=== PATIENT | female | born 1945 | race Caucasian/White ===

== ENCOUNTER 2020-04-26 08:55 | Emergency (ER) | payer OTHER, SELFPAY ==
[2020-04-26] VITALS (15 sets, daily range): BP systolic 64–134; BP diastolic 44–77; PULSE 89–100; RESP 16–32; TEMP 36; O2SAT 96–100
--- NOTE | 2020-04-26 09:01 | ED.GENADULT ---
HPI - General Adult General Chief complaint: Altered Mental Status Stated complaint: Trach Fell Out Time Seen by Provider: 04/26/20 08:58 Source: EMS Mode of arrival: EMS Limitations: no limitations History of Present Illness HPI narrative: 74-year-old female with extensive medical history is sent by her hospice doctor as her tracheostomy tube was accidentally dislodged this morning. It has been in place for many months and patient is in no respiratory distress. The home nursing facility does not feel comfortable replacing the trach. She is otherwise well and at her baseline. Patient had a fall with cervical fracture in September of 2019 and has had a series of significant setbacks in the aftermath including strokes, multiple visits for sepsis. at bedside said she is a bit confused from her baseline. She has a history of this behavior with UTIs and likely pulled the trach as a consequence of her confusion. Onset (ago): minute(s) Treatments prior to arrival: none Related Data Previous Rx's Medication Instructions Recorded sulfamethoxazole-trimethoprim 1 tab PO BID 7 Days #14 tab 04/26/20 [Bactrim DS] Allergies Allergy/AdvReac Type Severity Reaction Status Date / Time No Known Drug Allergies Allergy Verified 04/26/20 10:41 Review of Systems Review of Systems ROS Unobtainable: Unobtainable due to medical condition Exam Narrative Exam Narrative: GEN: 74-year-old female, clearly chronically ill, awake, eyes open in no obvious distress EYES: Pupils are equal, round, and reactive to light and accommodation. Extraoccular muscles are intact bilaterally. There is no subconjunctival hemorrhage or exudate. ENT: Tracheostomy displaced, no significant secretions, bleeding, swelling or erythema CHEST: Lungs are clear to auscultation bilaterally and free of wheezes, rales, or rhonchi. Heart rate is regular rhythm, there are no murmurs, clicks, rubs, or gallops. There is no chest wall tenderness. ABD: Abdomen is soft and nontender. There is no guarding or rebound. Bowel sounds are normal in all 4 quadrants. There is no mass or organomegaly. EXT: Full painless ROM of all extremities with no loss of sensation or strength. SKIN: Warm, pink, and dry. No erythema or rash Initial Vital Signs Initial Vital Signs: Vital Signs Temperature 96.8 F L 04/26/20 09:11 Pulse Rate 100 H 04/26/20 09:11 Respiratory Rate 18 04/26/20 09:11 Blood Pressure 131/63 04/26/20 09:11 Pulse Oximetry 100 04/26/20 09:11 Course Course Course Narrative: respiratory contacted and trach kit brought from stores. Unable to pass trach. I also have tried unsuccessfully. Call to anesthesia two anesthesiologists present and will sedate and attempt passage of trach trach easily placed, will treat UTI, her hospice physician is on board with plan and will follow Orders Ordered: ED Orders 04/26/20 09:45 Basic Metabolic Panel Stat Complete Blood Count AUTO DIFF Stat 04/26/20 10:15 Urinalysis and Microscopic Stat Urine Culture Stat Discontinued Medications Sodium Chloride (Normal Saline 0.9%) 1,000 mls @ 1,000 mls/hr IV BOLUS ONE Stop: 04/26/20 10:26 Last Infusion: 04/26/20 10:43 Dose: 0 mls/hr Documented by: Admin: 04/26/20 09:42 Dose: 1,000 mls/hr Documented by: JAYE Vital Signs Vital signs: Vital Signs - 8 hr 04/26/20 09:11 04/26/20 09:53 04/26/20 09:55 Temperature 96.8 F L Pulse Rate 100 H 100 H 98 H Respiratory Rate 18 22 17 Blood Pressure 131/63 Blood Pressure [Right Arm] 131/77 131/77 Pulse Oximetry 100 100 04/26/20 10:00 04/26/20 10:04 04/26/20 10:06 Temperature Pulse Rate 98 H 99 H 95 H Respiratory Rate 20 32 H 30 H Blood Pressure Blood Pressure [Right Arm] 73/45 L 64/44 L 99/52 L Pulse Oximetry 04/26/20 11:27 Temperature Pulse Rate 95 H Respiratory Rate 28 H Blood Pressure Blood Pressure [Right Arm] Pulse Oximetry Medical Decision Making Lab Data Result diagrams: 04/26/20 09:45 04/26/20 09:45 Labs: Lab Results 04/26/20 04/26/20 04/26/20 Range/Units 09:45 09:45 10:15 WBC 5.2 (4.5-11.0) X10^3/uL RBC 5.01 (4.0-5.2) X10^6/uL Hgb 14.6 (12.0-16.0) g/dL Hct 45.2 (36-46) % MCV 90.0 (80-100) fL MCH 29.2 (26-34) PG MCHC 32.4 (30-36) % RDW 17.4 H (11.6-14.8) % Plt Count 218 (150-400) X10^3/uL Neut % (Auto) 72.1 (50-75) % Lymph % (Auto) 17.1 L (25-40) % [place] % (Auto) 7.7 (3-14) % Eos % (Auto) 2.0 (2-4) % Baso % (Auto) 1.1 (0-2) % Neut # (Auto) 3700 (5759-4019) /uL Lymph # (Auto) 900 L (2335-9575) /uL [place] # (Auto) 400 (0-900) /uL Eos # (Auto) 100 (0-450) /uL Baso # (Auto) 100 (0-100) /uL Sodium 139 (137-145) mmol/L Potassium 3.6 (3.4-5.1) mmol/L Chloride 110 H (98-107) mmol/L Carbon Dioxide 17 L (22-32) mmol/L BUN 7 (7-17) mg/dL Creatinine 0.86 (0.52-1.04) mg/dL Estimated GFR > 60.0 (>60) mL/min BUN/Creatinine Ratio 8.1 (6-22) Glucose 64 L (80-110) mg/dL Calcium 9.6 (8.4-10.2) mg/dL Urine Color Yellow Urine Appearance Clear Urine pH 5.5 (4.5-8.0) Ur Specific [place] 1.025 (1.000-1.035) Urine Protein Trace H (Negative) Urine Glucose (UA) Negative (Negative) g/dL Urine Ketones 1+ H (NEGATIVE) Urine Occult Blood 2+ H (Negative) Urine Nitrate Positive H (Negative) Urine Bilirubin Negative (NEGATIVE) Urine Urobilinogen 0.2 (0.2) E.U./dL Ur Leukocyte Esterase 3+ H (NEGATIVE) Urine RBC 30-100/hpf H (0-5/HPF) Urine WBC >100/hpf H (0-5/HPF) Ur Squamous Epith Cells 1-5 /hpf (0-5/HPF) Urine Bacteria Many (>30) H (None) Ur Culture Indicated? Specimen cultured Point of Care Testing Test Results Not applicable Glucose POC 72 Point of care testing: Point of Care Testing Test Results Not applicable Glucose POC 72 Discharge Plan Departure Patient Disposition: Home Clinical Impression: Tracheostomy mechanical complication, Acute UTI Instructions: How to Take Care of a Tracheostomy, DI for Urinary Tract Infection (UTI) Activity Restrictions/Additional Instructions: *You have been diagnosed with [trach replacement] *What to do: *Take medications as directed *Follow up with your primary care provider in 2-3 days, call for an appointment. Let them know you were seen in the Emergency Department and that we ask that you be seen in follow up *Return to ER if you should have any new, worsening or concerning symptoms Prescriptions: New sulfamethoxazole-trimethoprim [Bactrim DS] 800-160 mg tablet 1 tab PO BID 7 Days Qty: 14 RF: 0
[2020-04-26] MEDS: SODIUM CHLORIDE 0.9% 1,000 ML 1000 ML IV (09:42)
[2020-04-26 09:57] LABS: Add Manual Diff / Slide Review NO; Basophils Absolute Auto 100 /uL (0-100); Basophils Percent Auto 1.1 % (0-2); Eosinophils Absolute Auto 100 /uL (0-450); Hematocrit 45.2 % (36-46); Hemoglobin 14.6 g/dL (12.0-16.0); Lymphocytes Absolute Auto 900 /uL (1100-4500); Lymphocytes Percent Auto 17.1 % (25-40); Mean Corpuscular HGB Conc 32.4 % (30-36); Mean Corpuscular Hemoglobin 29.2 PG (26-34); Monocytes Absolute Auto 400 /uL (0-900); Monocytes Percent Auto 7.7 % (3-14); Neutrophils Absolute Auto 3700 /uL (1500-7000); Neutrophils Percent Auto 72.1 % (50-75); Platelet Count 218 X10^3/uL (150-400); Red Blood Cell Count 5.01 X10^6/uL (4.0-5.2); Red Cell Distribution Width 17.4 % (11.6-14.8); White Blood Cell Count 5.2 X10^3/uL (4.5-11.0)
--- NOTE | 2020-04-26 10:13 | PM.PROC.1 ---
Procedures Date/Time Date of procedure: 04/26/20 Time of procedure: 10:00 Intubation Time out performed: Yes Sedative: other (propofol 80mg with lidocaine 40mg) Additional comments: This was a replacement of a Shiley tracheostomy tube that was unable to be re-inserted without sedation. Patient was confirmed to have patent douglas upper airways by occluding trach hole with finger while breathing deeply. No respiratory distress. Pre-oxygenated through mouth and trach openning. 40mg propofol with lido was given IV, 6.0 soft, lubricated nasal cannula inserted into trach, maintained spontaneous respirations. Nasal cannula removed and secretions suctioned. Original shiley with obturator was placed, requiring light manipulation to pass through a tracheal ring narrowing. Phenylephrine 100mcg given for BP of 80/40, recovered to 99/55. O2 saturation maintained throughout.
[2020-04-26 10:21] LABS: BUN Creatinine Ratio 8.1 (6-22); Blood Urea Nitrogen 7 mg/dL (7-17); Calcium 9.6 mg/dL (8.4-10.2); Carbon Dioxide 17 mmol/L (22-32); Chloride 110 mmol/L (98-107); Estimated Glomerular Filt Rate > 60.0 mL/min (>60); Glucose 64 mg/dL (80-110); HEMOLYSIS < 15 (0-50); Potassium 3.6 mmol/L (3.4-5.1); Sodium 139 mmol/L (137-145)
[2020-04-26 10:53] LABS: Appearance Urine UA CLEAR; Bilirubin Urine UA NEGATIVE (NEGATIVE); Color Urine UA YELLOW; Glucose Urine UA NEGATIVE (Negative); Ketones Urine UA 1+ (NEGATIVE); Leukocyte Esterase Urine UA 3+ (NEGATIVE); Nitrite Urine UA POSITIVE (Negative); Occult Blood Urine UA 2+ (Negative); Protein Urine UA TRACE (Negative); Specific Gravity Urine UA 1.025 (1.000-1.035); Urobilinogen Urine UA 0.2 E.U./dL (0.2)
[2020-04-26 11:40] LABS: RBC Urine 30-100/HPF (0-5/HPF); WBC Urine >100/HPF (0-5/HPF); pH Urine UA 5.5 (4.5-8.0)
[2020-04-26 11:41] LABS: Bacteria Urine Many (>30); Culture Indicated Urine Specimen Cultured; Squamous Epithelial Cell Urine 1-5 /HPF (0-5/HPF)
--- NOTE | 2020-04-26 12:28 | PC.NURSE ---
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 Today was increased restlessness and pulled out her trach. Brought to ED for replacement. Unable to replace at bedside w/ RT and ED doc, procedural sedation w/ anesthesia replaced trach w/o difficulty. Pt w/ UTI as source of confusion.
== END 2020-04-26 13:18 | disposition home or self-care (01) ==
PROVIDERS: Emergency Provider Emergency Medicine; PCP Nurse Practitioner Family
DX: J95.03 Malfunction of tracheostomy stoma (principal); N39.0 Urinary tract infection, site not specified
CPT/HCPCS: 31500; 36415; 80048; 81001; 82962; 85025; 87077; 87086; 87186; 94640; 94770; 94799; 96360; 99285; 99291; 99292

== ENCOUNTER → 2020-09-28 13:06 | Outpatient (CLI) | payer BC, MEDICARE, SELFPAY ==
--- NOTE | 2020-09-28 | DI.RAD.S_ITS ---
PROCEDURE: FL BARIUM SWALLOW W SPEECH INDICATIONS: Dysphagia, oropharyngeal phase COMPARISON: None. TECHNIQUE: Examination was conducted in conjunction with speech pathology per standard protocol. In the lateral projection, filming was performed of the patient swallowing. AP projection filming may also be performed with patient swallowing. COMPARISON: FINDINGS: Function: The oral preparatory phase is abnormal with premature spillage of all passage of proffered substances. The subsequent oral propulsive phase, pharyngeal phase, and esophageal phase of swallowing also appear normal with all proffered substances. No laryngotracheal penetration occurred with all proper substances. Laryngotracheal aspiration occurred with thick viscosity substances. Pooling in the vallecula noted which is easily cleared with repeat swallows. Morphology: No cricopharyngeal bar is identified. No cervical esophageal webs. No Zenker's diverticulum. No strictures. IMPRESSION: Laryngotracheal aspiration. Dictated by: Leanne Hale MD, PhD on 09/28/2020 at 15:31 Approved by: Leanne Hale MD, PhD on 09/28/2020 at 15:34
--- NOTE | 2020-10-05 11:23 | ST.SWALLOW ---
Visit Care Team Role Provider Type RONALD Harris Primary Care Provider Non-Staff Specialty: Family Practice Address: [address] [place] [address], [address], [place], [address] Fax: Email: Judd Rust MD Attending Provider Non-Staff Referring Provider Specialty: Medical Address: [address] [place] [address], [id number] Email: Modified Barium Swallow Study [facility] Modified Barium Swallow Study Start: 10/04/20 08:46 Freq: Status: Active Protocol: Document 09/28/20 08:46 ESVIN (Rec: 10/04/20 08:47 ESVIN [id number]) Modified Barium Swallow Study Total Time Visit Start Time 13:30 Visit Stop Time 14:30 Total Visit Minutes [address] Judd Rust Reason for Referral Dysphagia Setting Setting Outpatient Care Patient Information Identification Type Name,ID Card Patient History The pt is a 74-yr-old female from [facility]. Case history came primarily from the pt's facility [facility] via a phone call. The pt has a history of stroke resulting in significant dysarthria impacting speech intelligibility, and a dense C2 fracture from a fall, which led to tracheotomy and NPO status. The pt was admitted to [facility] on hospice after hospitalization; however, she improved and is no longer receiving hospice care. At one point the pt removed her trach, which was replaced in ED but then later permanently removed by medical staff. The pt has remained NPO with exception of Bright Free Water Protocol and therapeutic trials of applesauce and soft solids. The pt's primarily [facility] reported the pt is very impulsive and requires significant cuing to take deep breaths in order to remain calm, to refrain from talking with oral intake, and to focus on utensil/bolus presentation . MBS was ordered to assess swallow safety/function, determine if pt is safe for diet advancement, and to provide guidance related to SNF discharge. Subjective Observations The pt arrived on time, accompanied by her daughter who was consulted, with the pt , following the procedure. The pt was not a good historian, primarily complaining about the taste of the food at the SNF. Speech intelligibility was ~50%. The pt followed simple directions and did not exhibit impulsivity during the swallow study. Patient Positioning Position View Lateral Imaging Lateral View Textures Administered Trials Presented Thin Liquid via Spoon,[place] Liquid via Spoon,Honey Liquid via Spoon Oral Phase Source: MBSIMP (TM) (C) Bolus Specific Scoring Grid Lip Closure No Impairment (WNL) Tongue Control During Bolus Hold Moderate Impairment Bolus Prep/Mastication Moderate Impairment Bolus Transport/Lingual Motion Moderate Impairment A/P Lingual Propulsion Delay Yes: Early spilling to pharynx Oral Residue Mild Impairment Residue Clearing Minimal Impairment Nasal Regurgitation No Additional Oral Phase Observations Oral Peripheral Exam: Tremorous jaw and tongue at rest and with movement. Lingual weakness and reduced coordination. Pt exhibited difficulty performing volitional swallow, with lingual and laryngeal pumping present. Pt has natural dentition in adequate condition. Soft palate elevates upon phonation. Oral Phase: Immediate posterior spillage into pharynx was observed with all consistencies due to lingual weakness and reduced coordination. A/P propulsion is delayed and accompanied by lingual rocking, resulting in bolus escape to pharynx prior to onset of swallow. Chin tuck did not improve oral containment. The pt was able to hold bolus anteriorly in the oral cavity during a counted swallow strategy (1-2 -3-swallow) but it immediately escaped to the pharynx with attempted initiation of a/p propulsion. Mild oral residue escaped to vallecula post swallow, contributing to pharyngeal residue. Pharyngeal Phase Source: MBSIMP (TM) (C) Bolus Specific Scoring Grid Delayed Initiation of Pharyngeal Swallow Yes Number of Seconds Delayed (seconds) up to 10 sec Residue Along the Tongue Base Yes Clearance of Residue Along Tongue Base Moderate Impairment Laryngeal Elevation Moderate Impairment Anterior Hyoid Movement Moderate Impairment Epiglottic Range of Motion Minimal Impairment Vallecular Residue Yes Laryngeal Vestibular Closure Severe Impairment Pharyngeal Stripping Wave Moderate Impairment Posterior Pharyngeal Wall Residue No Upper Esophageal Sphincter Opening WFL Residue in the Pyriform Sinuses No Esophageal Clearance Upright Position No Impairment (WNL) Pharyngoesophageal Backflow Observed No Additional Pharyngeal Phase Observations All trials were 1/8 - 1/2 tsp in size. Significantly delayed swallow trigger was observed with all trials, allowing for escape of bolus from oral cavity to vallecula and frequently along aryepiglottic folds to pyriform sinuses. Occasional spillage into the laryngeal vestibule was noted prior to onset of swallow. Penetration with ejection (PAS 2) was observed with 2 trials of NTL and 2 trials of HTL. Penetration without ejection ( PAS 3) was observed during swallow with thin liquid, then resulting in aspiration without cough response (PAS 8) during subsequent dry swallow . Ronn aspiration without cough response (PAS 8) was noted during chin tuck swallow of NTL and with HTL and applesauce trials without use of chin tuck, including attempted controlled swallow initiation (8-2-2-swallow). The pt was prompted by the [facility] to cough during episodes of penetration and aspiration, but contrast was not ejected. Trials were discontinued for pt safety. The pt did exhibit coughing after trials were ended, indicating pulmonary sensation of foreign substance. Her daughter reported that the pt did spit out contrast; however , it is not known if that was oral or pharyngeal residue vs ejection from lungs. A/P View Clinical Impressions Dysphagia Type Severe Oropharyngeal Dysphagia Findings The pt presents with severe oropharyngeal dysphagia secondary to weakened swallow musculature, particularly lingual, which impeded prompt a/p propulsion and swallow trigger and resulted in immediate spillage of boluses from oral to pharyngeal cavity . Frequently, contrast penetrated the laryngeal vestibule prior to swallow onset, and ronn aspiration was observed x4 d/t incomplete airway closure. Penetration and aspiration were silent in nature. The pt did not benefit from swallow strategies including chin tuck and controlled swallow initiation. The pt does not exhibit swallow safety sufficient for oral intake as her primary source of nutrition and hydration. Alternative source of nutrition and hydration, including PEG tube feeding, should be considered. Recommend Bright Free Water Protocol with small amounts of water at a time for pt enjoyment and to maintain oral hygiene. The pt and her daughter were educated on results of MBSS, including the unlikelihood that the pt could sustain her nutrition and hydration needs via oral intake and the likelihood that alternative sources would need to be considered. PEG tube feeding was not directly discussed. Recommended the pt remain NPO until returning to the SNF and following up with her primary [facility]. The pt and her daughter verbalized understanding and agreement. This [facility] spoke with the pt's primary [facility], Carlie Kaiser, via phone immediately following the study and informed her of the results and recommendations. Rehabilitation Potential Poor Patient Appropriate for Therapy Yes: Continue at SNF targeting pt/family education Recommendations Diet Liquids Order Nothing by Mouth Diet Order NPO Medication Recommendation Not Recommended by Mouth Treatment Plan Short Term Goals To be determined by primary [facility].
== END ==
PROVIDERS: PCP Nurse Practitioner Family; Referring Provider Family Medicine; Visit Provider Family Medicine
DX: R13.12 Dysphagia, oropharyngeal phase (principal)
CPT/HCPCS: 74230; 92611